=== PATIENT | male | born 1965 | race Caucasian/White ===

== ENCOUNTER 2017-01-15 06:50 | Emergency (ER) | payer BC ==
[~2017-01-15] VITALS: Ht 180.3 cm; Wt 95.2 kg
[~2017-01-15 06:50] MED LIST: ACETAMINOPHEN500 MG PO; CRUTCH1 EACH; IBUPROFEN600 MG PO; KEFLEX500 MG PO; NORCO 5-325 TA1 EACH PO; PERCOCET 10-321 EACH PO
[2017-01-15] MEDS ORDERED: ASPIR-TRIN325 MG PO (07:04)
[2017-01-15] MEDS ORDERED: ALEVE220 M1 PO (07:04)
--- NOTE | 2017-01-15 22:34 | EKG ---
[facility] [address] [facility] [place], [place] [address] Signed Normal sinus rhythm Normal ECG No previous ECGs available Confirmed by BRYON DOSHI MD ([id number]) on 01/15/2017 10:34:17 PM Electronically Signed By: BRYON DOSHI MD 01/15/17 2234 PATIENT NAME: VIC MULLINS JR Electrocardiogram DATE OF : 67 PHYSICIAN: BRYON DOSHI MD REPORT #: [id number] REPORT IS CONFIDENTIAL AND NOT TO BE RELEASED WITHOUT AUTHORIZATION
== END 2017-01-15 08:51 | disposition home or self-care (01) ==
LOC: ED 06:50
DX: G47.30 Sleep apnea, unspecified (principal); R42 Dizziness and giddiness; Z98.890 Other specified postprocedural states
CPT/HCPCS: 80053; 84484; 85025; 93005; 93010; 99284

== ENCOUNTER 2020-05-10 10:29 | Emergency (ER) | payer BC ==
[~2020-05-10] VITALS: Ht 180.3 cm; Wt 97.5 kg
[~2020-05-10 10:29] MED LIST changes: +ALEVE220 M1 PO; +ASPIR-TRIN325 MG PO
[2020-05-10] MEDS ORDERED: LISINOPRIL5 MG PO (10:41)
--- NOTE | 2020-05-10 22:42 | EKG ---
[facility] [address] [facility] [place], [place] [address] Signed Normal sinus rhythm Normal ECG When compared with ECG of 15-JAN-2017 07:16, No significant change was found Confirmed by BRYON DOSHI MD ([id number]) on 05/10/2020 10:42:42 PM Electronically Signed By: BRYON DOSHI MD 05/10/20 224 PATIENT NAME: VIC MULLINS JR Electrocardiogram DATE OF : 67 PHYSICIAN: BRYON DOSHI MD REPORT #: [id number] REPORT IS CONFIDENTIAL AND NOT TO BE RELEASED WITHOUT AUTHORIZATION
--- NOTE | 2020-05-10 22:43 | EKG ---
[facility] [address] [facility] [place], [place] [address] Signed Normal sinus rhythm Normal ECG When compared with ECG of 10-MAY-2020 10:36, (Unconfirmed) No significant change was found Confirmed by BRYON DOSHI MD ([id number]) on 05/10/2020 10:43:03 PM Electronically Signed By: BRYON DOSHI MD 05/10/20 2243 PATIENT NAME: VIC MULLINS JR Electrocardiogram DATE OF : 67 PHYSICIAN: BRYON DOSHI MD REPORT #: [id number] REPORT IS CONFIDENTIAL AND NOT TO BE RELEASED WITHOUT AUTHORIZATION
== END 2020-05-10 14:37 | disposition home or self-care (01) ==
LOC: ED 10:29
DX: I10 Essential (primary) hypertension (principal); Z79.899 Other long term (current) drug therapy
CPT/HCPCS: 71045; 80053; 83690; 83735; 84484; 85025; 85610; 93005; 93010; 96374; 99285-25; C9113

== ENCOUNTER 2020-07-20 10:47 | Emergency (ER) | payer OTHER, BC ==
[~2020-07-20] VITALS: Ht 180.3 cm; Wt 97.5 kg
[~2020-07-20 10:47] MED LIST changes: +LISINOPRIL5 MG PO
[2020-07-20] MEDS ORDERED: CEPHALEXIN500 M1 PO (14:28)
== END 2020-07-20 14:45 | disposition home or self-care (01) ==
LOC: ED 10:47
DX: S71.112A Laceration without foreign body, left thigh, initial encounter (principal); Z23 Encounter for immunization; W45.8XXA Other foreign body or object entering through skin, initial encounter; I10 Essential (primary) hypertension; Z79.899 Other long term (current) drug therapy
CPT/HCPCS: 12001; 90471; 90715; 99282-25

== ENCOUNTER 2020-12-24 21:25 | Emergency (ER) | payer OTHER, BC ==
[~2020-12-24] VITALS: Ht 180.3 cm; Wt 95.2 kg
[~2020-12-24 21:25] MED LIST changes: +CEPHALEXIN500 M1 PO
--- OUTSIDE RECORDS SUMMARY | 2020-12-24 21:30 | XMS ---
PreManage Notification: VIC MULLINS Security [employer] Events No recent Security Events currently on file CRITERIA MET - ED - Positive COVID-19 Lab Result - [facility] JACLYN ESCALERA [facility] Current PHONE: [phone] Nicolas has no Care Guidelines for this patient. E.Abby VISIT COUNT (12 MO.) 3 LEILANI Mantilla TOTAL 3 NOTE: Visits indicate total known visits. ED/C VISIT TRACKING (12 MO.) 12/24/2020 21:25 [facility] OR TYPE: Emergency COMPLAINT: - HEAD INJURY 07/20/2020 10:48 [facility] [place] TYPE: Emergency COMPLAINT: - L LEG LACERATION INJURY DIAGNOSES: - Other foreign body or object entering through skin, initial encounter - Laceration without foreign body, left thigh, initial encounter - Encounter for immunization - Other emt intermediate (current) drug therapy - Essential (primary) hypertension 05/10/2020 10:30 [facility] OR TYPE: Emergency COMPLAINT: - CHEST PAIN, BLOOD PRESSURE PROBLEM DIAGNOSES: - Essential (primary) hypertension - Other chest pain - Other care home (current) drug therapy INPATIENT VISIT TRACKING (12 MO.) No inpatient visits to display in this time frame [email or web address]
[2020-12-24] MEDS ORDERED: HYDROCODON-ACE1 EA10 PO (23:21)
== END 2020-12-24 23:42 | disposition home or self-care (01) ==
LOC: ED 21:25
DX: S06.9X1A Unspecified intracranial injury with loss of consciousness of 30 minutes or less, initial encounter (principal); W17.89XA Other fall from one level to another, initial encounter; I10 Essential (primary) hypertension; Z79.899 Other long term (current) drug therapy
CPT/HCPCS: 70450; 99284-25; A9270

== ENCOUNTER 2022-05-18 07:10 | Day surgery (SDC) | payer OTHER ==
[~2022-05-18] VITALS: Ht 180.3 cm; Wt 102.3 kg
[~2022-05-18 07:10] MED LIST changes: +HYDROCODON-ACE1 EA10 PO; +SUDAFED 12-HOU120 MG PO
[2022-05-18] MEDS ORDERED: ALEVE220 M1 PO (07:30)
[2022-05-18] MEDS ORDERED: ESCITALOPRAM OX10 MG PO (07:42)
--- NOTE | 2022-05-18 09:09 | NUR ---
05/18/22 0909 Lala Darden 0906- PT ARRIVES TO PACU REACTIVE TO VERBAL STIMULI. PT UPDATED THAT HIS PROCEDURE IS OVER. PT NODS HIS HEAD. FALLS BACK TO SLEEP WHEN NOT BEING TALKED TO. RESP EVEN AND UNLABORED. OXYGEN SAT MID TO HIGH 90'S ON 3L VIA CO2 NC.
--- NOTE | 2022-05-18 09:55 | OR ---
[facility] [address] [place], [place] [address] Signed DATE OF OPERATION: 05/18/2022 SURGEON: Latesha Tate MD PREOPERATIVE DIAGNOSES: 1. Personal history of colonic polyps in 2018 at age 52. 2. Internal and external hemorrhoids. POSTOPERATIVE DIAGNOSES: 1. 4 mm polyp at 100 cm transverse colon. 2. 4 mm polyp at 25 cm in sigmoid colon. 3. Minimal internal and external hemorrhoids. PROCEDURE: Colonoscopy with hot biopsy. ESTIMATED BLOOD LOSS: None. INDICATIONS: Eris is a 56-year-old gentleman, asked to see me for his followup colonoscopy. I helped him with his colonoscopy back in 2018 at the age of 52. He had hyperplastic and adenomatous polyps removed. He had internal and external hemorrhoids. We asked him to return in 5 years. He said he is doing well. No family history of colon cancer or polyps. No lower GI complaints. In the office, I gave him a pamphlet on colonoscopy. He understands the nature of the test. There is risk including, but not limited to gas bloating, crampy abdominal pain, bleeding, perforation requiring surgery, and missed diagnosis. We also reviewed the need for IV conscious sedation. He took 10 mg of Versed and 200 mcg of fentanyl to cover the case previously. He had been awake and a little uncomfortable last time. He also ended up in the ER with gas pain. Once he passed the gas, he was fine. I had explained to him that we could use monitored anesthesia care with propofol. He wanted to go with Versed and fentanyl once again. PROCEDURE NOTE: Eris was taken into our endoscopy suite and placed in the left lateral decubitus position. Once again, we used 10 mg of Versed and 200 mcg of fentanyl to cover the case. A digital rectal exam was performed and this was unremarkable. He has minimal external hemorrhoids. He had good sphincter tone. Not much in the way of his prostate. The adult colonoscope had been introduced and advanced under direct visualization of the camera. We went slowly and thankfully he is easy to pass the scope from a technical Electronically Signed By: LATESHA TATE MD 05/18/22 0955 PATIENT NAME: ERIS MULLINS JR OPERATIVE REPORT DATE OF : 67 REPORT #: [id number] PHYSICIAN: LATESHA TATE MD PCP: EMILY YADAV PAC REPORT IS CONFIDENTIAL AND NOT TO BE RELEASED WITHOUT AUTHORIZATION [facility] [address] [place], [place] [address] Signed standpoint. His prep was quite excellent as always. We could easily see the appendiceal orifice and the ileocecal valve. The scope was then slowly withdrawn. We took pictures throughout for photodocumentation. The above-mentioned polyps were easily removed with the help of hot biopsy forceps. Upon retroflexion of the scope, he has minimal internal hemorrhoid tissue. After this, the gas was suctioned out and the colonoscope removed. Overall, Eris tolerated the procedure well. RECOMMENDATIONS: I will see Eris back in my office in 7 to 14 days to review his results. Again, if he is having a lot of trouble or uncomfortable during the procedure, he can always consider propofol infusion in the future. It looks like he is going to be on the five year plan. Latesha Tate MD ALB/MODL /[id number] cc: PHAM Polo MD Copies: LATESHA TATE MD ~ Electronically Signed By: LATESHA TATE MD 05/18/22 0955 PATIENT NAME: ERIS MULLINS JR OPERATIVE REPORT DATE OF : 67 REPORT #: [id number] PHYSICIAN: LATESHA TATE MD PCP: EMILY YADAV PAC REPORT IS CONFIDENTIAL AND NOT TO BE RELEASED WITHOUT AUTHORIZATION
--- NOTE | 2022-05-19 14:02 | PATH ---
[facility] [address] [facility] [place], [place] [address] Signed SPECIMEN(S): A TRANSVERSE COLON POLYP AT 100 CM SPECIMEN(S): B COLON POLYP AT 25 CM SPECIMEN SOURCE: A. TRANSVERSE COLON POLYP AT 100 CM B. COLON POLYP AT 25 CM CLINICAL HISTORY: History of polyps, history of internal and external hemorrhoids. Postop: Polyps x 2, internal hemorrhoids. FINAL PATHOLOGIC DIAGNOSIS: A. Transverse colon polyp at 100 cm: - Tubular adenoma (one fragment). B. Colon polyp at 25 cm: - Tubular adenoma (one fragment). JVR:[facility]:C2NR MICROSCOPIC EXAMINATION: Histologic sections of all submitted blocks are examined by light microscopy. These findings, together with the gross examination, support the pathologic diagnosis. GROSS DESCRIPTION: A. The specimen, labeled and designated "Ran, transverse colon polyp at 100 cm," is received in formalin and consists of one asencio soft tissue fragment, 0.2 cm. Entirely submitted in (A1). B. The specimen, labeled and designated "Tong, colon polyp at 25 cm," is received in formalin and consists of one asencio soft tissue fragment, 0.4 cm. Entirely submitted in (B1). VB (under the direct supervision of a pathologist) The Gross Description was prepared using a voice recognition system. The report was reviewed for accuracy; however, sound-alike word errors, addition and/or deletions may occur. If there is any question about this report, please contact Client Services. PERFORMING LABORATORY: The technical component was performed by [employer], [address] [place] [id number] (CLIA# [id number]). Professional interpretation was performed by [facility], [address] [place] [address], [place] [address] (CLIA#: [id number]). PATIENT NAME: VIC TONG JR PATHOLOGY DATE OF : 67 REPORT #: [id number] PHYSICIAN: [facility] PCP: EMILY YADAV PAC REPORT IS CONFIDENTIAL AND NOT TO BE RELEASED WITHOUT AUTHORIZATION [address] [place] [address] Signed Diagnostician: Moisés Terrell MD Pathologist Electronically Signed 05/19/2022 Copies: ~ PATIENT NAME: VIC TONG PATHOLOGY DATE OF : 67 REPORT #: [id number] PHYSICIAN: [facility] PCP: EMILY YADAV PAC REPORT IS CONFIDENTIAL AND NOT TO BE RELEASED WITHOUT AUTHORIZATION
== END 2022-05-18 10:00 | disposition home or self-care (01) ==
LOC: OPS 07:10 → DS 07:10 → OPS 08:15 → DS 08:15 → OPS 10:00
PROVIDERS: ATTEND Colon & Rectal Surgery
PROC: 0DBL8ZX Excision of Transverse Colon, Via Natural or Artificial Opening Endoscopic, Diagnostic (ICD-10-PCS; 2022-05-18)
PROC: 0DBN8ZX Excision of Sigmoid Colon, Via Natural or Artificial Opening Endoscopic, Diagnostic (ICD-10-PCS; principal; 2022-05-18 08:15)
DX: Z12.11 Encounter for screening for malignant neoplasm of colon (principal); Z86.010 Personal history of colon polyps; K64.0 First degree hemorrhoids; G47.33 Obstructive sleep apnea (adult) (pediatric); I10 Essential (primary) hypertension; F41.9 Anxiety disorder, unspecified; D12.3 Benign neoplasm of transverse colon
CPT/HCPCS: 99153; G0500; J2250; J3010; J7121